=== PATIENT | male | born 1985 ===

== ENCOUNTER 2017-12-15 18:13 | Emergency (ER) | payer SELFPAY ==
[2017-12-15] MEDS ORDERED: Ibuprofen TAB* 600 MG PO ONE (18:43)
[2017-12-15] MEDS ORDERED: Amoxicillin/Clavulanate TAB* 875 MG PO ONE (20:25)
--- NOTE | 2017-12-15 20:36 | UC ---
Cortez Blanca Gabriel, scribed for Viviana Lazo MD on 12/15/17 at 1950 . Throat Pain/Nasal Jonatan HPI - HPI Summary HPI Summary: This patient is a 32 year old M presenting to [facility] [place] with a chief complaint of sore throat that began a few days ago. The patient rates the pain 5/10 in severity. Patient reports myalgia, BUCKNER, fever, fatigue, chills, and diaphoresis. Temperatures have been high, with intermittent episodes of sweating. Patient denies cough, stiffness in neck, rashes, visual changes, and dizziness. Feels ok when temperature is down. No significant headache, photophobia. NO recent travel. Works at home, no contact with children, no one else in his household is unwell. - History of Current Complaint Chief Complaint: UCGeneralIllness Stated Complaint: THROAT PAIN Time Seen by Provider: 12/15/17 18:42 Hx Obtained From: Patient Onset/Duration: Still Present Severity: Moderate Pain Intensity: 5 Pain Scale Used: 0-10 Numeric Associated Signs & Symptoms: Positive: Negative - cough, stiffness in neck, rashes, visual changes, dizziness,, Other - myalgia, BUCKNER, fever, fatigue, chills , and diaphoresis. - Epiglottits Risk Factors Epiglottis Risk Factors: Negative - Allergies/Home Medications Allergies/Adverse Reactions: Allergies Allergy/AdvReac Type Severity Reaction Status Date / Time No Known Allergies Allergy Verified 12/15/17 18:32 Home Medications: Home Medications Ibuprofen [Advil] 400 mg PO 12/15/17 [History] PMH/Surg Hx/FS Hx/Imm Hx Previously Healthy: Yes - fit, healthy, no PMD - Surgical History Surgical History: None - Family History Known Family History: Positive: None - healthy parents - Social History Occupation: Employed Full-time - senior web developer Lives: Dormitory/Roommates - girlfriend and roommate. Alcohol Use: Weekly Substance Use Type: None Smoking Status (MU): Never Smoked Tobacco Review of Systems Constitutional: Fever, Chills, Fatigue, Other - diaphoresis Skin: Negative Eyes: Negative ENT: Sore Throat Respiratory: Negative Cardiovascular: Negative Gastrointestinal: Negative Genitourinary: Negative Motor: Negative Neurovascular: Negative Musculoskeletal: Myalgia Neurological: Headache Psychological: Negative Is Patient Immunocompromised?: No All Other Systems Reviewed And Are Negative: Yes Physical Exam Triage Information Reviewed: Yes Appearance: Ill-Appearing - looks mildly unwell; sweating on second evaluation, after which temp decreased to 99. Alert and interactive, does not look septic. Vital Signs: Initial Vital Signs Temp 105.7 F 12/15/17 18:27 Pulse 103 12/15/17 18:27 Resp 16 12/15/17 18:27 BP 124/68 12/15/17 18:27 Pulse Ox 100 12/15/17 18:27 Eyes: Positive: Conjunctiva Clear ENT: Positive: Pharyngeal erythema, Tonsillar swelling - right greater with left , with exudate behind the right tonsil. No trismus.. Negative: Trismus, Muffled voice, Hoarse voice, Sinus tenderness Dental Exam: Normal Neck: Positive: Supple, Nontender, No Lymphadenopathy Respiratory: Positive: Lungs clear, Normal breath sounds, No respiratory distress, No accessory muscle use Cardiovascular: Positive: RRR, No Murmur Abdomen Description: Positive: Nontender, No Organomegaly, Soft Bowel Sounds: Positive: Present Musculoskeletal: Positive: Strength Intact, ROM Intact Neurological Exam: Normal Neurological: Positive: Alert, Muscle Tone Normal Psychological Exam: Normal Skin Exam: Normal Diagnostics - Laboratory Diagnostic Studies Completed/Ordered: rapid strep and flu negative. Re-Evaluation - Re-Evaluation First Eval Re-Evaluation Time: 20:15 - temp dec to 99 Change: Improved Throat Pain/Nasal Course/Dx - Course Course Of Treatment: augmentin for suspected tonsillar source of infection. Advised high fluid intake and aware of need to follow up if fever persists. Assessment/Plan: Pt medications reviewed this visit. - Differential Dx/Diagnosis Differential Diagnosis/HQI/PQRI: Influenza, Pharyngitis, Tonsillitis Provider Diagnoses: tonsillitis, not strep. Discharge - Sign-Out/Discharge Documenting (check all that apply): Discharge - Discharge Plan Condition: Stable Disposition: HOME Prescriptions: Amoxicillin/Clavulanate TAB* [Augmentin TAB 875*] 875 mg PO BID #20 tab Patient Education Materials: Tonsillitis (ED) Referrals: No Primary Care Phys,NOPCP [Primary Care Provider] - Additional Instructions: begin augmentin for tretment of suspected tonsillitis. Throat culture is pending. Ensure that you increase your intake of fluids, and use ibuprofen to control your fever. If you are still running a high fever in 2 days, I advise an emergency room visit for evaluation. - Billing Disposition and Condition Condition: STABLE Disposition: HOME The documentation as recorded by the Cortez delcid Gabriel accurately reflects the service I personally performed and the decisions made by me, Viviana Lazo MD.
== END 2017-12-15 20:51 | disposition home or self-care (01) ==
LOC: UCEAST 18:13
DX: J03.90 Acute tonsillitis, unspecified (principal)
CPT/HCPCS: 87070; 87502; 87651; 99202; A9270-GY; G0463